=== PATIENT | female | born 2000 | race African-American/Black ===

== ENCOUNTER 2019-04-30 08:55 | Emergency (ER) | payer SELFPAY ==
[2019-04-30 10:12] LABS: ABSOLUTE LYMPHOCYTES (AUTO) 0.6 10^3/uL (0.5-4.7); ABSOLUTE MONOCYTES (AUTO) 0.8 10^3/uL (0.1-1.4); ABSOLUTE NEUT (AUTO) 5.7 10^3/uL (1.7-8.2); BASOPHILS % (AUTO) 0.5 % (0-2); EOSINOPHILS % (AUTO) 0.1 % (0-6); HEMATOCRIT 33.8 % (36.0-47.0); HEMOGLOBIN 11.5 g/dL (12.0-15.5); MEAN CORPUSCULAR HEMOGLOBIN 32.2 pg (27.0-33.4); MEAN CORPUSCULAR VOLUME 95 fl (80-97); MONOCYTES % (AUTO) 10.9 % (3-13); PLATELET COUNT 264 10^3/uL (150-450); RED BLOOD COUNT 3.57 10^6/uL (3.72-5.28); RED CELL DISTRIBUTION WIDTH 11.4 % (11.5-14.0); SEGMENTED NEUTROPHILS % (AUTO) 80.5 % (42-78); TOTAL CELLS COUNTED % (AUTO) 100 %; WHITE BLOOD COUNT 7.1 10^3/uL (4.0-10.5)
[2019-04-30 10:20] LABS: APPEARANCE,URINE CLEAR; BILIRUBIN,URINE NEGATIVE (NEGATIVE); COLOR,URINE YELLOW; GLUCOSE, URINE NEGATIVE (NEGATIVE); KETONES,URINE 20 mg/dL (NEGATIVE); PROTEIN,URINE NEGATIVE (NEGATIVE); URINE SPECIFIC GRAVITY 1.008; UROBILINOGEN,URINE NEGATIVE mg/dL (<2.0)
[2019-04-30] MEDS ORDERED: DEXTROSE 5%-LACTATED RINGERS 1,000 ML IV ONE (10:47)
[2019-04-30] MEDS ORDERED: ONDANSETRON HCL INJ/PF 4 MG/2 ML SDV IV ONE (10:47)
[2019-04-30] MEDS ORDERED: KETOROLAC TROMETHAMINE INJ/PF 30 MG/1 ML SDV IV ONE (10:47)
[2019-04-30] MEDS ORDERED: RINGERS SOLUTION,LACTATED 1,000 ML IV ONE (11:08)
[2019-04-30 11:35] LABS: ALBUMIN 3.6 g/dL (3.5-5.0); ALKALINE PHOSPHATASE 80 U/L (38-126); ANION GAP 9 (5-19); ASPARTATE AMINO TRANSFERASE 17 U/L (14-36); BILIRUBIN,DIRECT 0.2 mg/dL (0.0-0.4); BILIRUBIN,TOTAL 1.6 mg/dL (0.2-1.3); BLOOD UREA NITROGEN 11 mg/dL (7-20); CALCIUM 8.9 mg/dL (8.4-10.2); CARBON DIOXIDE 21 mmol/L (22-30); CHLORIDE 108 mmol/L (98-107); GLUCOSE 78 mg/dL (75-110); POTASSIUM 3.5 mmol/L (3.6-5.0); TOTAL PROTEIN 6.9 g/dL (6.3-8.2)
--- NOTE | 2019-04-30 11:43 | EKG REPORT ---
SEVERITY:- BORDERLINE ECG - SINUS RHYTHM BORDERLINE T ABNORMALITIES, INFERIOR LEADS : Confirmed by: Marcela Hansen MD 30-Apr-2019 11:42:45
--- NOTE | 2019-04-30 12:08 | ER Document Report ---
Entered by JAIME RODRÍGUEZ SCRIBE 04/30/19 1051 Acting as scribe for:LAMBERTO PARISI MD ED Dizziness/Weakness - General Chief Complaint: Near Syncope Stated Complaint: POSSIBLE SYNCOPE Time Seen by Provider: 04/30/19 10:40 Mode of Arrival: Ambulatory Information source: Patient Notes: This 19 year old female presents to the ED with complaints of dizziness and lightheadedness that began yesterday. Patient states that prior to arrival today she was leaving the bathroom when she began to feel lightheaded/dizzy and then had a syncopal event. Patient states that she did not hurt anything during this syncopal episode. Patient notes that she woke up with a migraine yesterday that still lingers today and that she had associated chills, nausea, and a temperature of 102.5 F, but denies vomiting and a cough. TRAVEL OUTSIDE OF THE [place] IN LAST 30 DAYS: No - Related Data Allergies/Adverse Reactions: No Known Allergies Allergy (Unverified 04/30/19 10:01) Past Medical History - General Information source: Patient - Social History Smoking Status: Never Smoker Cigarette use (# per day): No Chew tobacco use (# tins/day): No Smoking Education Provided: No Frequency of alcohol use: None Drug Abuse: None Occupation: Teacher at [employer] Lives with: Family Family History: None Patient has suicidal ideation: No Patient has homicidal ideation: No - Medical History Medical History: Negative Past Surgical History: Reports: None Review of Systems - Review of Systems Constitutional: See HPI, Chills, Fever - 102.5 F EENT: No symptoms reported Cardiovascular: See HPI, Syncope, Dizziness, Lightheaded Respiratory: See HPI. denies: Cough Gastrointestinal: See HPI, Nausea. denies: Vomiting Genitourinary: No symptoms reported Female Genitourinary: Last menstrual period - 2 years ago; on control Musculoskeletal: No symptoms reported Skin: No symptoms reported Hematologic/Lymphatic: No symptoms reported Neurological/Psychological: See HPI, Headaches -: Yes All other systems reviewed and negative Physical Exam - Vital signs Vitals: Temp Pulse Resp BP Pulse Ox 99.0 F 88 16 126/78 H 99 04/30/19 09:45 04/30/19 09:45 04/30/19 09:45 04/30/19 09:45 04/30/19 09:45 Interpretation: Normal - General General appearance: Appears well, Alert In distress: None - HEENT Head: Normocephalic, Atraumatic Eyes: Normal Pupils: PERRL - Respiratory Respiratory status: No respiratory distress Chest status: Nontender Breath sounds: Nonproductive cough, Rhonchi Chest palpation: Normal - Cardiovascular Rhythm: Regular Heart sounds: Normal auscultation Murmur: No - Abdominal Inspection: Normal Distension: No distension Bowel sounds: Normal Tenderness: Nontender Organomegaly: No organomegaly - Back Back: Normal, Nontender - Extremities General upper extremity: Normal inspection General lower extremity: Normal inspection - Neurological Neuro grossly intact: Yes - Psychological Associated symptoms: Normal affect, Normal mood - Skin Skin Temperature: Warm Skin Moisture: Dry Skin Color: Normal Course - Re-evaluation Re-evalutation: 04/30/19 12:10 Patient states she is feeling much better now after her medications and IV fluids. She needs a note for leaving work today. She states she needs a separate work note for tomorrow in case she is not still feeling well, otherwise she will discard that note and go to work. - Vital Signs Vital signs: Temp Pulse Resp BP Pulse Ox 98.1 F 81 18 130/77 H 99 04/30/19 12:34 04/30/19 12:34 04/30/19 12:34 04/30/19 12:34 04/30/19 12:34 - Laboratory Result Diagrams: 04/30/19 09:56 04/30/19 09:56 Laboratory results interpreted by me: 04/30/19 04/30/19 04/30/19 09:56 09:56 09:56 RBC 3.57 L Hgb 11.5 L Hct 33.8 L RDW 11.4 L Lymph % (Auto) 8.0 L Seg Neutrophils % 80.5 H Potassium 3.5 L Chloride 108 H Carbon Dioxide 21 L Total Bilirubin 1.6 H Urine Ketones 20 H Leukocyte Esterase Rfl TRACE H Discharge - Discharge Clinical Impression: Viral syndrome, Syncope and collapse Condition: Stable Disposition: HOME, SELF-CARE Additional Instructions: Viral Syndrome: The physician has diagnosed a viral infection. Viruses not only cause "colds," but can cause many different symptoms including generalized aching, fever, headache, cough, diarrhea, nausea, vomiting, and fatigue. The treatment, for the most part, is simply relief of symptoms. This means that antibiotics are usually not given. Rest, fluids, pain medications and, occasionally, medication for the specific symptoms that are most bothersome will be prescribed. Use good handwashing to avoid passing the virus to others. Shared toys should be cleaned with disinfectant. Clean the toilets, sinks, and counter surfaces in bathrooms. Launder clothing in hot water. Contact the physician if you develop any new or unusual symptoms such as severe headache, stiff neck, high fever, chest pain, productive cough, or shortness of breath. You should be rechecked if you don't see marked improvement within seven to 10 days. Syncopal Episode: Syncope (fainting or near-fainting) can occur from many different health problems. Or it can be a simple fainting spell requiring no treatment. It is safe for you to go home, but further evaluation will likely be necessary. Your work-up may include tests for internal bleeding, heart disease, medication problems, or near-strokes. Tests are not always required, however, depending on the nature of your problem. The warning signs of an impending faint include: dizziness, lightheadedness, nausea, hot flashes, tingling, and weakness. If this happens, lay down and put your feet up, then wait until all of these symptoms have passed before standing up again. If these episodes become recurrent, or if you develop chest pain, heart palpitations, mental confusion, blurred vision, or headache, then you should call the physician, or go to the emergency room. Drink plenty of fluids and get plenty of rest today. Take Tylenol for fever if needed. Follow-up with a local medical doctor if not improving. RETURN TO THE EMERGENCY ROOM IF ANY NEW OR WORSENING SYMPTOMS. Forms: Special Work Note, Return to Work Scribe Attestation: 04/30/19 12:11 I personally performed the services described in the documentation, reviewed and edited the documentation which was dictated to the scribe in my presence, and it accurately records my words and actions. I personally performed the services described in the documentation, reviewed and edited the documentation which was dictated to the scribe in my presence, and it accurately records my words and actions.
[2019-04-30 12:33] VITALS: BP 130/77
== END 2019-04-30 12:34 | disposition home or self-care (01) ==
LOC: ER 08:55
DX: R55 Syncope and collapse (principal); B34.9 Viral infection, unspecified; R42 Dizziness and giddiness; R11.0 Nausea; R05 Cough; R50.9 Fever, unspecified; R09.89 Other specified symptoms and signs involving the circulatory and respiratory systems; R51 Headache; Z79.3 Long term (current) use of hormonal contraceptives
CPT/HCPCS: 93005; 99284; 96361; 96374; 96375; 36415; 87086; 84703; 85025; 81025; 80053; 81001; 93010; J1885; J2405; J7120